=== PATIENT | female | born 1970 | race Caucasian/White ===

== ENCOUNTER 2023-04-30 08:03 | Day surgery (SDC) | payer OTHER ==
[~2023-04-30] VITALS: Ht 165.1 cm; Wt 83.5 kg
[~2023-04-30 08:03] MED LIST: ADVAIR DISK1; AMLODIPINE BESY10 MG PO; AZELASTINE HCL0.1 %; BENZONATATE150 MG PO; COLACE100 MG PO; CREON12000 UNT PO; EPIPEN 2-P0.3 MG/0.3; ISORDIL10 MG PO; NEURONTIN800 MG PO; NOVOLOG FL100 UNIT/M IJ; OLOPATADINE HCL 0.1% OU; OMEPRAZOLE DR40 MG PO; PRED FORTE1 % OU; SYMBICORT 80-4.5MCG PO; TOPROL XL25 MG PO; VAZALORE81 MG PO
[2023-04-30 10:32] VITALS: BP 99/66
== END 2023-04-30 10:31 | disposition home or self-care (01) ==
LOC: ORM 08:03
PROVIDERS: ATTEND Student in an Organized Health Care Education/Training Program
DX: G89.4 Chronic pain syndrome (principal); M47.816 Spondylosis without myelopathy or radiculopathy, lumbar region

== ENCOUNTER 2023-12-03 06:54 | Day surgery (SDC) | payer OTHER ==
[~2023-12-03] VITALS: Ht 165.1 cm; Wt 85.3 kg
[~2023-12-03 06:54] MED LIST changes: +HUMALOG100 UNIT/M SC; +HYDROXYCHLOR200 MG PO; +PREDNISONE5 MG PO
[2023-12-03] MEDS ORDERED: SODIUM CHLORIDE 20 ML/VIAL SDV ONE (07:05)
[2023-12-03] MEDS ORDERED: TRIAMCINOLONE ACETONIDE 40 MG/ML ML ONE (07:08)
[2023-12-03] MEDS ORDERED: BUPIVACAINE HCL PF 0.5 % 50 MG/10 ML SDV ONE (07:08)
[2023-12-03] MEDS ORDERED: LIDOCAINE HCL 1% (10MG/ML) 100 MG/10 ML MDV ONE (07:08)
[2023-12-03] MEDS ORDERED: LYRICA75 MG PO (07:19)
[2023-12-03] MEDS ORDERED: SODIUM CHLORIDE 0.9% 10 ML SYR ONE (07:30)
[2023-12-03] MEDS ORDERED: MIDAZOLAM HCL 2 MG/2 ML VIAL ONE (07:38)
[2023-12-03 09:13] VITALS: BP 149/51
== END 2023-12-03 08:42 | disposition home or self-care (01) ==
LOC: ORM 06:54
PROVIDERS: ATTEND Student in an Organized Health Care Education/Training Program
DX: M79.18 Myalgia, other site (principal); G89.4 Chronic pain syndrome; M79.2 Neuralgia and neuritis, unspecified; M47.816 Spondylosis without myelopathy or radiculopathy, lumbar region
CPT/HCPCS: J3301